=== PATIENT | female | born 1955 | race Caucasian/White ===

== ENCOUNTER → 2016-07-12 | Outpatient (CLI) | payer BC ==
[2016-07-12 17:40] LABS: BASO % 0.4 % (0.0-1.0); EOS # 0.5 K/mm3 (0.0-0.50); EOS % 7.5 % (0.0-3.0); LARGE UNSTAINED CELL # 0.1 K/mm3 (0.0-0.4); LARGE UNSTAINED CELL % 1.8 % (0.0-4.0); LYMPH # 1.3 K/mm3 (1.5-4.5); LYMPH % 19.9 % (24.0-44.0); MEAN CORPUSCULAR HEMOGLOBIN 28.7 pg (27.0-33.0); MEAN CORPUSCULAR HGB CONC 33.2 g/dl (32.0-36.5); MEAN CORPUSCULAR VOLUME 86.5 fl (80.0-96.0); MONO # 0.4 K/mm3 (0.0-0.8); MONO % 6.9 % (0.0-5.0); NEUTROPHILS # 3.9 K/mm3 (1.8-7.7); NEUTROPHILS % 63.6 % (36.0-66.0); PLATELET COUNT, AUTOMATED 258 k/mm3 (150-450); RED CELL DISTRIBUTION WIDTH 14.6 % (11.5-14.5); WHITE BLOOD COUNT 6.1 K/mm3 (4.0-10.0)
[2016-07-12 18:12] LABS: ALBUMIN 3.7 GM/DL (3.2-5.2); ALBUMIN/GLOBULIN RATIO 1.32 (1.00-1.93); ALKALINE PHOSPHATASE 85 U/L (45-117); ALT/SGPT 19 U/L (12-78); ANION GAP 8 MEQ/L (8-16); AST/SGOT 15 U/L (15-37); BILIRUBIN,TOTAL 0.3 MG/DL (0.2-1.0); BLOOD UREA NITROGEN 18 MG/DL (7-18); CALCIUM LEVEL 8.9 MG/DL (8.8-10.2); CARBON DIOXIDE LEVEL 30 MEQ/L (21-32); CHLORIDE LEVEL 104 MEQ/L (98-107); CREATININE FOR GFR 0.63 MG/DL (0.55-1.02); FREE T4 1.05 NG/DL (0.76-1.46); GLOMERULAR FILTRATION RATE > 60.0 (>45); GLUCOSE, FASTING 93 MG/DL (80-110); POTASSIUM SERUM 4.2 MEQ/L (3.5-5.1); SODIUM LEVEL 142 MEQ/L (136-145); TOTAL PROTEIN 6.5 GM/DL (6.4-8.2)
== END ==
LOC: M SMT 11:10
PROVIDERS: ATTEND Specialist
DX: N93.8 Other specified abnormal uterine and vaginal bleeding (principal)
CPT/HCPCS: 36415; 80053; 84439; 84443; 85025; G0123

== ENCOUNTER → 2017-03-17 | Outpatient (REF) | payer BC | LOC: M LAB REF 17:19 | PROVIDERS: ATTEND Family Medicine | DX: R20.0 Anesthesia of skin (principal) ==

== ENCOUNTER → 2017-06-01 | Outpatient (REF) | payer BC ==
[2017-06-03 14:46] LABS: CA 125 152.4 U/ML (<30.2)
== END ==
LOC: M LAB REF 19:48
DX: C54.1 Malignant neoplasm of endometrium (principal)
CPT/HCPCS: 86304

== ENCOUNTER → 2017-06-14 | Outpatient (CLI) | payer BC | LOC: M PLARAD 10:17 | DX: C54.1 Malignant neoplasm of endometrium (principal) | CPT/HCPCS: 78815 ==